=== PATIENT | male | born 1980 | race Two or more races ===

== ENCOUNTER 2019-03-15 22:29 | Emergency (ER) | payer SELFPAY ==
[~2019-03-15] VITALS: Ht 182.9 cm; Wt 90.7 kg
[2019-03-15] MEDS ORDERED: LISINOPRIL20 MG ORAL (22:50)
[2019-03-15 23:26] VITALS: BP 168/115
[2019-03-16] MEDS ORDERED: Azithromycin 250mg tab ORAL ONE (00:30)
[2019-03-16] MEDS ORDERED: Lidocaine 1% MPF 10mg/ml 5ml INJ ONE (00:30)
[2019-03-16] MEDS ORDERED: IBUPROFEN600 MG ORAL (00:31)
[2019-03-16] MEDS ORDERED: LISINOPRIL-HCT1 EAC2 ORAL (00:32)
--- NOTE | 2019-03-16 00:32 | Emergency Room Report ---
History of Present Illness General Chief Complaint: General Complaint Source: Patient Present Illness HPI This is a 38-year-old male with no past medical history. He presents with chief complaint of cough congestion. Ongoing for 4 days. Also with ear pain and sore throat. Has not take anything for this. No fever or chills. He also complaining of some dysuria. No discharge. This been ongoing for a few days also. He is sexually active with multiple partners. Not protected sex. Allergies: Coded Allergies: No Known Allergies (Unverified , 03/15/19) Patient History Past Medical History: see triage record, old chart reviewed, HTN Past Surgical History: none Pertinent Family History: none Social History: Denies: smoking Immunizations: other Reviewed Nursing Documentation: PMH: Agreed; PSxH: Agreed Nursing Documentation-PMH Past Medical History: No History, Except For Hx Hypertension: Yes Review of Systems Eye: Denies: eye pain, blurred vision ENT: Reports: ear pain, nose congestion; Denies: throat swelling Respiratory: Reports: cough; Denies: shortness of breath Cardiovascular: Denies: chest pain, palpitations Gastrointestinal: Denies: abdominal pain, diarrhea, nausea, vomiting Musculoskeletal: Denies: back pain, joint pain Skin: Denies: rash Neurological: Denies: headache, numbness Endocrine: Denies: increased thirst, increased urine Hematologic/Lymphatic: Denies: easy bruising All Other Systems: negative except mentioned in HPI Physical Exam Vital Signs Date Time Temp Pulse Resp B/P (MAP) Pulse Ox O2 Delivery O2 Flow Rate FiO2 03/15/19 22:47 98.1 81 14 169/116 (133) 94 Room Air Vitals with high blood pressure Sp02 EP Interpretation: reviewed, normal General Appearance: well appearing, no apparent distress, alert Head: normocephalic, atraumatic Eyes: bilateral eye PERRL, bilateral eye EOMI ENT: hearing grossly normal, normal pharynx Neck: full range of motion, supple, no meningismus Respiratory: chest non-tender, lungs clear, normal breath sounds Cardiovascular #1: regular rate, rhythm, no murmur Gastrointestinal: normal bowel sounds, non tender, no mass, no organomegaly, no bruit, non-distended Musculoskeletal: back normal, normal range of motion, gait/station normal Psychiatric: mood/affect normal Medical Decision Making Diagnostic Impression: Primary Impression: URI (upper respiratory infection) Qualified Codes: J06.9 - Acute upper respiratory infection, unspecified Additional Impression: Urethritis ER Course Presents with upper respiratory infection. No evidence of any bacterial infection. TMs are normal. He does have a urethritis. Most likely chlamydia. Rocephin and azithromycin given here. Recommend outpatient testing for other STDs and HIV. Last Vital Signs Date Time Temp Pulse Resp B/P (MAP) Pulse Ox O2 Delivery O2 Flow Rate FiO2 03/15/19 23:26 98.1 85 16 168/115 95 Room Air Status: improved Disposition: HOME, SELF-CARE Condition: Stable Scripts Lisinopril/Hydrochlorothiazide 20-25 Mg Tab (LISINOPRIL-HCTZ 20-25 MG TAB) 1 Each Tablet 1 TAB ORAL DAILY, #90 TAB Prov: Km Che MD 03/16/19 Ibuprofen* (MOTRIN*) 600 Mg Tablet 600 MG ORAL THREE TIMES A DAY, #30 TAB 0 Refills Prov: Km Che MD 03/16/19 Additional Instructions: Take your blood pressure medication. Follow-up with your doctor in 7 days. Recommend outpatient testing for HIV, hepatitis, syphilis and other STDs. Return if worse. Km Che MD Mar 16, 2019 00:32
[2019-03-16 00:40] VITALS: BP 162/108
== END 2019-03-16 00:40 | disposition home or self-care (01) ==
LOC: EMR 23:37
DX: J06.9 Acute upper respiratory infection, unspecified (principal); N34.2 Other urethritis; I10 Essential (primary) hypertension
CPT/HCPCS: 96372; 96374; 99284; J0696